=== PATIENT | male | born 1935 | race Caucasian/White ===

== ENCOUNTER 2017-11-15 11:09 | Inpatient (IN) | payer OTHER ==
[~2017-11-15] VITALS: Ht 172.7 cm; Wt 66.0 kg
[2017-11-15] MEDS ORDERED: PERCOCET 5/31 TABLET PO (11:47)
[2017-11-15] MEDS ORDERED: FLEXERIL10 MG PO (11:47)
[2017-11-15] MEDS ORDERED: VESICARE10 MG PO (13:34)
[2017-11-15] MEDS ORDERED: AVODART0.5 MG PO (13:36)
[2017-11-15] MEDS ORDERED: NORVASC10 MG PO (13:36)
[2017-11-15] MEDS ORDERED: PILOCARPINE HCL5 MG PO (13:37)
[2017-11-15] MEDS ORDERED: LIPITOR10 MG PO (13:37)
[2017-11-15 14:32] LABS: HEMATOCRIT 40.2 % (38.0-50.0); HEMOGLOBIN 14.5 G/DL (12.5-16.6); MCH 32.7 PG (29.0-34.0); MCHC 36.1 G/DL (30.0-36.0); MCV 90.5 FL (86-99); PLATELET COUNT 299 K/uL (156-360); RBC DIS.WIDTH-CV 12.8 % (11.8-14.6); RBC DIS.WIDTH-SD 42.8 % (39-53); RED BLOOD COUNT 4.44 M/uL (4.00-5.50); WHITE BLOOD COUNT 7.4 K/uL (4.1-10.2)
[2017-11-15 14:42] LABS: ALBUMIN 3.7 g/dL (3.2-4.8); CHLORIDE 104 mEq/L (99-109); POTASSIUM 3.6 mEq/L (3.7-5.4); SODIUM 139 mEq/L (136-147)
[2017-11-15 14:44] LABS: GLUCOSE 83 mg/dL (70-99)
[2017-11-15 14:45] LABS: TOTAL PROTEIN 6.3 g/dL (6.4-8.3)
[2017-11-15 14:46] LABS: TOTAL BILIRUBIN 0.6 mg/dL (0.0-1.0)
[2017-11-15 14:48] LABS: ALKALINE PHOSPHATASE 102 IU/L (3-129); CREATININE 0.7 mg/dL (0.6-1.3); GFR ESTIMATE (CALCULATED) > 59 mL/min/ (58.99-99999)
[2017-11-15 14:49] LABS: UREA NITROGEN (BUN) 11 mg/dL (9-23)
[2017-11-15 14:50] LABS: AST (GOT) 20 IU/L (2-34)
[2017-11-15 14:51] LABS: ALT (GPT) 15 IU/L (3-49)
[2017-11-15 15:49] VITALS: BP 155/70
[2017-11-15 19:10] VITALS: BP 127/60
[2017-11-16] VITALS (7 sets, daily range): BP systolic 133–162; BP diastolic 58–76
[2017-11-16 13:53] LABS: CHLORIDE 101 MEQ/L (99-109); CREATININE 0.6 MG/DL (0.6-1.3); GFR ESTIMATE (CALCULATED) > 59 mL/min/ (58.99-99999); POTASSIUM 3.9 MEQ/L (3.7-5.4); SODIUM 136 MEQ/L (136-147); UREA NITROGEN (BUN) 10 mg/dL (9-23)
[2017-11-16 14:00] LABS: GLUCOSE 107 mg/dL (70-99)
[2017-11-17 06:07] LABS: BASOPHIL (%) 0.5 % (0-1); EOSINOPHIL (%) 1.9 % (0-5); EOSINOPHIL COUNT 0.2 K/uL (0-0.3); HEMATOCRIT 38.4 % (38.0-50.0); HEMOGLOBIN 13.4 G/DL (12.5-16.6); IMMATURE GRANULOCYTE (%) 0.3 % (0.0-0.7); LYMPHOCYTE (%) 14.5 % (15-42); LYMPHOCYTE COUNT 1.2 K/uL (1.0-2.8); MCH 32.2 PG (29.0-34.0); MCHC 34.9 G/DL (30.0-36.0); MCV 92.3 FL (86-99); MONOCYTE (%) 7.6 % (3-12); MONOCYTE COUNT 0.7 K/uL (0-0.8); NEUTROPHIL (%) 75.2 % (45-76); NEUTROPHIL COUNT 6.5 K/uL (1.8-6.4); PLATELET COUNT 289 K/uL (156-360); RBC DIS.WIDTH-CV 13.2 % (11.8-14.6); RBC DIS.WIDTH-SD 44.7 % (39-53); RED BLOOD COUNT 4.16 M/uL (4.00-5.50); WHITE BLOOD COUNT 8.6 K/uL (4.1-10.2)
[2017-11-17 06:37] LABS: CHLORIDE 101 MEQ/L (99-109); CREATININE 0.7 MG/DL (0.6-1.3); GFR ESTIMATE (CALCULATED) > 59 mL/min/ (58.99-99999); GLUCOSE 100 mg/dL (70-99); POTASSIUM 4.2 MEQ/L (3.7-5.4); SODIUM 138 MEQ/L (136-147); UREA NITROGEN (BUN) 7 mg/dL (9-23)
[2017-11-17 08:00] VITALS: BP 160/78
[2017-11-17 15:51] VITALS: BP 124/75
[2017-11-17 19:32] VITALS: BP 155/74
[2017-11-18] VITALS (7 sets, daily range): BP systolic 119–163; BP diastolic 61–87
[2017-11-19 04:35] VITALS: BP 118/52
[2017-11-19 07:56] VITALS: BP 143/65
[2017-11-19] MEDS ORDERED: HYDROCODON-ACE1 EAC7 PO (08:31)
[2017-11-19 12:02] VITALS: BP 159/72
== END 2017-11-19 14:57 | DRG 478 ==
LOC: EME 11:09 → 5WEST 14:06 → EDOF 14:06 → ENRESERV 14:09 → EDOF 14:11 → ENRESERV 14:39 → 5WEST 15:36 → ENRESERV 11-18 09:20 → 5WEST 11-18 17:51 → ENRESERV 11-18 18:20 → 5WEST 11-18 19:44 → 3EAST 11-18 20:53
PROVIDERS: Emergency Medicine Emergency Medical Services; Hospitalist
PROC: 0QU03JZ Supplement Lumbar Vertebra with Synthetic Substitute, Percutaneous Approach (ICD-10-PCS; principal; 2017-11-18)
PROC: 0QB00ZX Excision of Lumbar Vertebra, Open Approach, Diagnostic (ICD-10-PCS; principal; 2017-11-18)
PROC: 0QS03ZZ Reposition Lumbar Vertebra, Percutaneous Approach (ICD-10-PCS; principal; 2017-11-18)
DX: M48.56XA Collapsed vertebra, not elsewhere classified, lumbar region, initial encounter for fracture (principal); F05 Delirium due to known physiological condition; G30.9 Alzheimer's disease, unspecified; H91.93 Unspecified hearing loss, bilateral; F02.80 Dementia in other diseases classified elsewhere, unspecified severity, without behavioral disturbance, psychotic disturbance, mood disturbance, and anxiety; E87.6 Hypokalemia; E78.2 Mixed hyperlipidemia; H35.30 Unspecified macular degeneration; F17.210 Nicotine dependence, cigarettes, uncomplicated; I10 Essential (primary) hypertension; I34.1 Nonrheumatic mitral (valve) prolapse; I35.1 Nonrheumatic aortic (valve) insufficiency; K21.9 Gastro-esophageal reflux disease without esophagitis; K22.70 Barrett's esophagus without dysplasia; K59.00 Constipation, unspecified; L29.9 Pruritus, unspecified; M12.9 Arthropathy, unspecified; M54.5 Low back pain; N40.0 Benign prostatic hyperplasia without lower urinary tract symptoms; Z97.4 Presence of external hearing-aid; Z86.711 Personal history of pulmonary embolism; Z89.021 Acquired absence of right finger(s); Z90.49 Acquired absence of other specified parts of digestive tract; Z82.3 Family history of stroke
CPT/HCPCS: 71275; 80048; 80053; 85025; 85027; 88305; 88311; 93005; 93306; 93970; 99281; 99285; C1713; G0378; J0330; J0690; J1100; J1170; J1200; J1644; J1885; J2270; J2405; J2710; J3480; J7040; J7643; S0020